=== PATIENT | male | born 1980 | race Caucasian/White ===

== ENCOUNTER 2020-04-23 06:03 | Day surgery (SDC) | payer BC ==
[2020-04-23] MEDS ORDERED: Lactated Ringers 1,000 ML IV SCH (06:30)
[2020-04-23] MEDS ORDERED: Versed 2 MG/2 ML Injection ONE (07:43)
[2020-04-23] MEDS ORDERED: DIPRIVAN 200 MG/20 ML IV ONE ×2 (07:43→07:59)
[2020-04-23 09:00] VITALS: O2SAT 99
[2020-04-23 09:02] VITALS: BP 141/87; PULSE 64
--- NOTE | 2020-04-23 09:55 | OP ---
SURGERY DATE/TIME: 04/23/2020 0740 PREOPERATIVE DIAGNOSIS: Dysphagia. POSTOPERATIVE DIAGNOSIS: Normal exam. PROCEDURE: Esophagogastroduodenoscopy. SURGEON: Dr. Hurley. ANESTHESIA: Medications were given by the anesthesia department. HISTORY: The patient is a 40 year old white male who reports he has been having trouble with swallowing, feeling like his throat tightens up on him. He has been noticing it getting worse over the past six months. He stopped alcohol, smoking and changed his diet. He is currently on no medications and there is no other examination to this point for this problem. The patient was described the risks of the procedure including risk of perforation, phlebitis, untoward reaction to medication, bleeding and missed lesions. The patient verbalized his understanding and desired to have the procedure performed. DESCRIPTION OF PROCEDURE: The patient was given the medications by the anesthesia department. He had continuous pulse oximetry, ECG monitoring, intermittent blood pressure monitoring and tidal CO2 monitoring during the examination. He was placed in the left lateral decubitus position. A bite block was placed. The flexible Olympus gastroscope was used to intubate the oropharynx. A view of the larynx was obtained and appeared to be normal. The scope was easily introduced in the esophagus which appeared to be normal throughout its length. Specifically no stricture was noted. The gastroesophageal junction appeared to be normal. The stomach was entered where normal gastric rugal folds were seen. The gastric fuller was suctioned dry with copious amounts of clear liquid. The stomach was then re-insufflated. The scope was passed along the greater curvature of the stomach to the antrum. The pylorus encountered and intubated. Duodenum inspected and found to be normal as well. The scope is withdrawn towards the stomach. A retroflex view was obtained of the lesser curvature, fundus and cardia regions of the stomach and there appeared to be no evidence of hiatal hernia. With no other issues being found the scope was withdrawn from the patient who tolerated the procedure well and was sent back to outpatient recovery in good condition. I suggested follow up examination with complaints of this type be for a modified barium swallow.
== END 2020-04-23 08:50 | disposition home or self-care (01) ==
LOC: SDC 06:03
PROVIDERS: ATTEND Family Medicine
DX: R13.10 Dysphagia, unspecified (principal)
CPT/HCPCS: J2250; J2704